=== PATIENT | female | born 2000 | race Caucasian/White ===

== ENCOUNTER 2024-08-21 06:48 | Outpatient (REF) | payer OTHER, SELFPAY ==
--- NOTE | ~2024-08-21 | US_ITS ---
EXAMINATION: US PELVIS TRANSABDOMINAL AND TRANSVAGINAL HISTORY: PELVIC PAIN COMPARISON: There are no prior studies for comparison. TECHNIQUE: Transabdominal and endovaginal real-time 2D moseley-scale ultrasound was performed. FINDINGS: Uterus: The uterus is normal in size, measuring 10.3 x 3.1 x 4.1 cm. Myometrium has a normal echotexture. No fibroids are identified. Endometrium: The endometrial stripe measures 2 mm in thickness. An IUD is seen in the appropriate position in the endometrial canal. Right ovary: The right ovary measures 3.5 x 2.1 x 1.7 cm. The right ovary is normal in size and echotexture. Left ovary: The left ovary measures 2.0 x 1.3 x 1.1 cm. The left ovary is normal in size and echotexture. Pelvic fluid: none. US/US pelvic and transvaginal IMPRESSION: Unremarkable pelvic ultrasound. IUD in the appropriate position in the endometrial canal. Electronically signed by: Jose J Valladares MD 08/21/2024 11:52 AM EDT
== END 2024-08-21 06:49 | disposition home or self-care (01) ==
LOC: HO.UMASIMG 06:48
PROVIDERS: Visit Provider Family Medicine
DX: R10.2 Pelvic and perineal pain (principal)
CPT/HCPCS: 76830; 76856

== ENCOUNTER → 2024-08-21 09:30 | Outpatient (BNV) | payer OTHER, SELFPAY | PROVIDERS: Visit Provider Radiology Diagnostic Radiology | DX: R10.2 Pelvic and perineal pain (principal) | CPT/HCPCS: 76830; 76856 ==